=== PATIENT | female | born 1980 | race Caucasian/White ===

== ENCOUNTER 2019-02-03 23:18 | Emergency (ER) | payer BC ==
[2019-02-03 23:32] VITALS: BP 115/79; PULSE 73; TEMP 98.3; BMI 25.0
--- NOTE | 2019-02-03 23:58 | PDOC ---
History of Present Illness - General Chief Complaint: Injury Stated Complaint: RT KNEE PAIN Time Seen by Provider: 02/03/19 23:25 - History of Present Illness Initial Comments: 02/03/19 23:50 This 38-year-old woman with a history of osteoporosis presents with a right knee injury: Several hours prior to presentation, as she was participating in an obstacle course, she fell from a "monkey bar" that she was holding onto. She fell several feet(patient unsure of height of bar) directly onto the anterior aspect of her right knee. She denies impact on any other area of her body; there was no loss of consciousness. Since the injury, she has had pain on weight bearing. She has been using crutches and applying ice to the right knee. She has taken 2 tablets of acetaminophen since the injury. Past history notable for arthroscopic procedure to the right knee 2 years ago when she had repair of the ACL and meniscus. Past History - Past Medical History Allergies/Adverse Reactions: Allergies Allergy/AdvReac Type Severity Reaction Status Date / Time No Known Drug Allergies Allergy Verified 02/03/19 23:20 shellfish derived Allergy Verified 02/03/19 23:20 Home Medications: Ambulatory Orders Diclofenac Sodium [Voltaren -] 75 mg PO BID PRN #20 tablet. 02/04/19 COPD: No Other medical history: OSTEOPOROSIS - Suicide/Smoking/Psychosocial Hx Smoking History: Never smoked Review of Systems - Review of Systems Able to Perform ROS?: Yes Comments:: 12 point review of systems is negative except for what is noted in the history of present illness *Physical Exam - Vital Signs Last Vital Signs Temp Pulse Resp BP Pulse Ox 98.3 F 73 16 115/79 100 02/03/19 23:19 02/03/19 23:19 02/03/19 23:19 02/03/19 23:19 02/03/19 23:19 - Physical Exam Comments: GENERAL: Adult female, alert and oriented 3, no acute distress HEAD: Normal with no signs of trauma. EYES: PERRLA, EOMI, sclera anicteric, conjunctiva clear. ENT: Ears normal, nares patent, oropharynx clear without exudates. Moist mucous membranes. NECK: Normal range of motion, supple without lymphadenopathy, JVD, or masses. LUNGS: Breath sounds equal, clear to auscultation bilaterally. No wheezes, and no crackles. HEART:Regular rate and rhythm, normal S1 and S2 without murmur, rub or gallop. ABDOMEN:.normal bowel sounds No guarding,tenderness or rebound.No masses No distention. EXTREMITIES: Right knee-moderate edema, tenderness of the patella without instability; mild tenderness medial aspect of the proximal fibula Moderate pain with active and passive flexion/full extension of knee. No ligamentous instability evident Remainder of extremity exam is normal. NEUROLOGICAL: Cranial nerves II through XII grossly intact. Normal speech. No focal neurological deficits. MUSCULOSKELETAL: Back non-tender to palpation, no CVA tenderness SKIN: Warm, Dry, normal turgor, no rashes or lesions noted. Progress Note - Progress Note Progress Note: 3 position x-ray of the right knee performed. Preliminary interpretation by me : No evidence of fracture dislocation. Clinical presentation consistent with soft tissue injury of the knee (contusion/ sprain). Results discussed with the patient. Patient advised to elevate and apply ice to right knee as much as possible over the next 2 days. Knee immobilizer should be used during the day until seen by orthopedist. Patient has previous orthopedist in the [place] but states that she could follow up in this area. Franklyn Corley/[facility] are on-call and referral information given to the patient. She should arrange follow-up within the next 3-4 days. Meanwhile, she should use crutches for ambulation. Prescription for diclofenac 75 mg twice a day as needed for pain and sent to her pharmacy *DC/Admit/Observation/Transfer Diagnosis at time of Disposition: Contusion of right knee Qualifiers: Encounter type: initial encounter Qualified Code(s): S80.01XA - Contusion of right knee, initial encounter - Discharge Dispostion Disposition: HOME Condition at time of disposition: Stable - Prescriptions Prescriptions: Diclofenac Sodium [Voltaren -] 75 mg PO BID PRN #20 tablet.dr [place] Reason: Pain - Referrals Referrals: Sachin Corley MD [Staff Physician] - 3 days - Patient Instructions Printed Discharge Instructions: DI for Knee Sprain Additional Instructions: Elevation/ice to right knee as much as possible over the next 2 days Knee immobilizer when up and around until seen by orthopedist Crutches for ambulation until seen by orthopedist Diclofenac 75 mg twice a day as needed for pain; take with food Call orthopedic office ([facility]) on February 05 to arrange follow- up within the next 3-4 days Return to ER prior to seeing orthopedist if you have more severe pain/swelling - Post Discharge Activity
== END 2019-02-04 01:00 | disposition home or self-care (01) ==
LOC: FER 23:18
DX: S80.01XA Contusion of right knee, initial encounter (principal); M81.0 Age-related osteoporosis without current pathological fracture
CPT/HCPCS: 73562-TC-RT-FY; 81025; 99282-25